=== PATIENT | female | born 1950 | race Caucasian/White ===

== ENCOUNTER → 2024-07-08 11:07 | Outpatient (REF) | payer MEDICARE, OTHER, SELFPAY ==
[2024-07-08 13:14] LABS: % Basophils 0.4 % (0-2); % Immature Granulocytes 0.2 % (0-0.5); % Lymphocytes 28.7 % (20.5-51.1); % Monocytes 11.8 % (1.7-9.3); % Neutrophils 57.9 % (42.2-75.2); Absolute Eosinophils 0.1 10^3/uL (0-0.7); Absolute Lymphocytes 1.4 10^3/uL (1.2-3.4); Absolute Monocytes 0.6 10^3/uL (0.1-0.6); Absolute Neutrophils 2.8 10^3/uL (1.4-6.5); Hematocrit 44.1 % (37.0-47.0); Hemoglobin 14.8 g/dL (12.0-16.0); Mean Corp Hgb Conc. 33.6 g/dL (33.0-37.0); Mean Corpuscular Volume 95.5 fL (81.0-99.0); Mean Platelet Volume 10.3 fL (7.4-10.4); Nucleated Red Blood Cells % 0 %; Platelet Count 238 10^3/uL (130-400); Red Blood Cell Count 4.62 10^6/uL (4.20-5.40); Red Cell Dist. Width 12.3 % (11.5-14.5); White Blood Cell Count 4.9 10^3/uL (4.8-10.8)
[2024-07-08 14:05] LABS: ALT (SGPT) 21 U/L (0-35); AST (SGOT) 29 U/L (14-36); Albumin 4.5 g/dl (3.5-5.0); Alkaline Phosphatase 84 U/L (38-126); Blood Urea Nitrogen 11 mg/dl (7-17); Calcium 9.2 mg/dl (8.4-10.2); Carbon Dioxide 28 mmol/L (22-30); Chloride 100 mmol/L (98-107); Glucose 86 mg/dl (70-99); HDL Cholesterol 67 mg/dl; LDL Cholesterol, Calculated 116 mg/dl; Potassium 4.7 mmol/L (3.5-5.1); Sodium 138 mmol/L (135-145); Total Bilirubin 0.5 mg/dl (0.2-1.3); Total Cholesterol 194 mg/dl (50-199); Total Protein 6.8 g/dl (6.3-8.2); Triglyceride 56 mg/dl (10-149); Very Low Density Lipoprotein 11 mg/dl (0-30); eGFR > 60.00
[2024-07-08 14:33] LABS: TSH Reflex To Free T4 4.44 uIU/ml (0.47-4.68)
== END ==
LOC: REG 11:07
PROVIDERS: ATTENDING PHYSICIAN Internal Medicine
DX: R42 Dizziness and giddiness (principal); R79.9 Abnormal finding of blood chemistry, unspecified; R53.83 Other fatigue
CPT/HCPCS: 36415; 80053; 80061; 84443; 85025

== ENCOUNTER → 2024-10-07 11:04 | Outpatient (REF) | payer MEDICARE, OTHER, SELFPAY | LOC: WDC 11:04 | PROVIDERS: ATTENDING PHYSICIAN Obstetrics & Gynecology Gynecology; FAMILY PHYSICIAN Internal Medicine | DX: Z12.31 Encounter for screening mammogram for malignant neoplasm of breast (principal) | CPT/HCPCS: 77063; 77067 ==

== ENCOUNTER 2025-02-01 06:09 | Day surgery (SDC) | payer MEDICARE, OTHER, SELFPAY ==
--- NOTE | 2025-01-18 13:46 | VNURNOTE ---
Patient is scheduled for an elective R HANNA on 02/01 - she is a same day patient with Dr Lira. Spoke with patient prior to surgery. Introduced role of [facility] Liaison. Patient reports that she lives with her spouse in a MULTI story home.
There are 0 steps to enter and a flight of steps to the second floor.
There is a powder room and master bedroom on the administrative assistant data entry. She has a rolling walker.
She had a prior THR but was not same day surgery.
PCP is Dr Lisa Pierre.
Discussed [facility] joint protocol and post surgical plans.
Reviewed that she will have VN services initially and will then start outpatient PT.
Patient selects [facility] for her home care needs and will go to [facility] for outpatient PT. Scheduled for 02/04.
Patient is in agreement with plan and states that her spouse will be home with her. Advised to bring RW with her day of surgery. Referral placed in [facility].
Plan: [facility] per [facility] joint protocol 02/01 then outpt PT on 02/04
[2025-01-20 11:47] LABS: Mean Corpuscular Hgb 32.4 pg (27.0-31.0); Mean Corpuscular Volume 92.6 fL (81.0-99.0); Mean Platelet Volume 10.1 fL (7.4-10.4); Platelet Count 232 10^3/uL (130-400); Red Blood Cell Count 4.32 10^6/uL (4.20-5.40)
[2025-01-20 12:47] LABS: Glycohemoglobin (HgbA1c) 5.5 % (4.0-5.6)
--- NOTE | 2025-01-20 13:14 | CM ---
CM reviewed medical records. CM confirmed that [facility] RN Liasion has spoken with patient. CM discussed hip precautions with patient. Patient has this CM's phone number for further support as needed.
[2025-01-20 13:53] LABS: ALT (SGPT) 17 U/L (0-35); AST (SGOT) 25 U/L (14-36); Albumin 4.4 g/dl (3.5-5.0); Alkaline Phosphatase 65 U/L (38-126); Blood Urea Nitrogen 16 mg/dl (7-17); Calcium 9.1 mg/dl (8.4-10.2); Carbon Dioxide 22 mmol/L (22-30); Chloride 106 mmol/L (98-107); Glucose 103 mg/dl (70-99); Potassium 4.8 mmol/L (3.5-5.1); Sodium 138 mmol/L (135-145); Total Bilirubin 0.6 mg/dl (0.2-1.3); Total Protein 6.7 g/dl (6.3-8.2); eGFR > 60.00
[2025-01-20 13:56] VITALS: BMI 22.4
[2025-01-26 09:13] VITALS: BMI 22.4
[2025-02-01] VITALS (18 sets, daily range): BP systolic 95–154; BP diastolic 59–105; PULSE 89; O2SAT 95
[2025-02-01] MEDS: TYLENOL 650 MG PO (07:00)
[2025-02-01] MEDS: CELEBREX 200 MG PO (07:00)
[2025-02-01] MEDS: NORMOSOL-R/PLASMALYTE-A 1000 IV (07:02)
[2025-02-01] MEDS: EMEND 40 MG PO (07:41)
[2025-02-01] MEDS: ANCEF 5 IV (12:58)
== END 2025-02-01 13:17 | disposition home health service (06) ==
LOC: SDS 06:09
PROVIDERS: ATTENDING PHYSICIAN Specialist; FAMILY PHYSICIAN Internal Medicine; OTHER PHYSICIAN Physician Assistant
DX: M16.11 Unilateral primary osteoarthritis, right hip (principal)
CPT/HCPCS: 27130; 36415; 73502; 80053; 83036; 85027; 87070; 93005; 97116; 97162; C1713; C1776